=== PATIENT | female | born 1985 | race Two or more races ===

== ENCOUNTER 2020-03-19 06:38 | Emergency (ER) | payer MEDICAID ==
[~2020-03-19] VITALS: Ht 160 cm; Wt 55.0 kg
[2020-03-19] VITALS (15 sets, daily range): BP systolic 119–136; BP diastolic 77–92
[2020-03-19] MEDS ORDERED: CEFAZOLIN 1000MG PREMIX 50 ML IV ONE ×2 (08:45→11:05)
[2020-03-19 09:13] LABS: BASOPHILS % 1.2 % (0.0-2.0); EOSINOPHILS % 2.9 % (0.0-5.0); HEMATOCRIT. 35.4 % (36.0-48.0); HEMOGLOBIN. 11.7 g/dL (12.0-16.0); LYMPHOCYTES % 23.7 % (20.0-50.0); MEAN CORPUSCULAR HEMOGLOBIN 29.6 pg (28.0-32.0); MEAN CORPUSCULAR VOLUME 89.2 fL (81.0-99.0); MEAN PLATELET VOLUME 7.9 fl (7.4-10.4); MONOCYTES % 6.3 % (2.0-8.0); NEUTROPHILS % 65.9 % (40.0-76.0); PLATELET 175 x1000/uL (130-400); RED BLOOD CELL COUNT 3.97 mill/uL (4.2-5.4); RED CELL DISTRIBUTION WIDTH 15.9 % (11.6-14.6)
[2020-03-19 09:21] LABS: CHLORIDE 100 mEq/L (98-107)
[2020-03-19 09:23] LABS: PROTHROMBIN TIME 10.3 sec (9.6-11.0)
[2020-03-19] MEDS ORDERED: LIDOCAINE HCL 1% 20ML VIAL (Pyxis) INJ ONE ×3 (11:25→15:19)
[2020-03-19] MEDS ORDERED: HEPARIN 1000 UNITS/ML 10ML ONE (11:25)
[2020-03-19] MEDS ORDERED: SODIUM BICARBONATE 4% (2.4MEQ) 5ML VIAL IV ONE ×2 (11:25→15:19)
[2020-03-19] MEDS ORDERED: FENTANYL CITRATE/PF 50MCG/ML 2ML VIAL ONE (11:33)
[2020-03-19] MEDS ORDERED: FENTANYL CITRATE/PF 50MCG/ML 2ML VIAL IV ONE (12:15)
[2020-03-19] MEDS ORDERED: DESMOPRESSIN ACETATE IV NR (14:00)
[2020-03-19] MEDS ORDERED: SODIUM CHLORIDE 0.9% IV NR (14:00)
== END 2020-03-19 16:16 | disposition home or self-care (01) ==
LOC: ER 06:38
DX: T82.9XXA Unspecified complication of cardiac and vascular prosthetic device, implant and graft, initial encounter (principal); Z20.828 Contact with and (suspected) exposure to other viral communicable diseases
CPT/HCPCS: 36415; 36581; 77001; 80053; 85025; 85610; 87426; 96365; 96367; 99285; C1750; C1769; J0690; J1644; J2597; J3010; J3490; J7040; Z7610; 36558; 99152; 99153; G0500

== ENCOUNTER 2020-11-21 22:44 | Emergency (ER) | payer MEDICAID | END 2020-11-22 00:53 | disposition left against medical advice (07) | LOC: ER 22:44 | DX: Z53.21 Procedure and treatment not carried out due to patient leaving prior to being seen by health care provider (principal) ==

== ENCOUNTER 2021-08-12 20:22 | Inpatient (IN) | payer MEDICAID ==
[~2021-08-12] VITALS: Ht 157.5 cm; Wt 64.4 kg
[~2021-08-12 20:22] MED LIST: AMLO10TA80 MT; CALC667C MT; NEPVIT MT
[2021-08-12 21:49] LABS: BASOPHILS % 0.3 % (0.0-2.0); EOSINOPHILS % 2.9 % (0.0-5.0); LYMPHOCYTES % 12.6 % (20.0-50.0); MEAN CORPUSCULAR VOLUME 90.3 fL (81.0-99.0); MONOCYTES % 10.1 % (2.0-8.0); NEUTROPHILS % 74.1 % (40.0-76.0); PLATELET 142 x1000/uL (130-400); RED BLOOD CELL COUNT 2.26 mill/uL (4.2-5.4)
[2021-08-12 21:54] LABS: HEMATOCRIT. 20.4 % (36.0-48.0)
[2021-08-12 21:55] LABS: CHLORIDE 102 mEq/L (98-107)
[2021-08-12 21:59] LABS: INR 0.9; PROTHROMBIN TIME 10.1 sec (9.6-11.0)
[2021-08-12 22:06] LABS: B-HCG QUANTITATIVE 432 mIU/mL (<3)
[2021-08-13] MEDS: LACTATED RINGERS 1,000 ML IV SCH ×3 (01:00→02:47)
[2021-08-13] MEDS ORDERED: MORPHINE SULFATE 2 MG/ML CPJ (NOT FOR IM USE) IV PRN (02:15)
[2021-08-13] MEDS ORDERED: LACTATED RINGERS 1,000 ML IV SCH ×2 (03:30)
[2021-08-13 06:23] VITALS: BP 132/76
[2021-08-13 08:00] VITALS: BP 128/94
[2021-08-13] MEDS ORDERED: PROPOFOL 200MG/20ML VIAL IV ONE (11:07)
[2021-08-13] MEDS ORDERED: FENTANYL CITRATE/PF 50MCG/ML 2ML VIAL ONE (11:08)
[2021-08-13] MEDS ORDERED: LIDOCAINE HCL 1% 20ML VIAL (Pyxis) INJ ONE (11:08)
[2021-08-13] MEDS ORDERED: MIDAZOLAM HCL 2 MG/2 ML VIAL ONE (11:08)
[2021-08-13] MEDS ORDERED: ONDANSETRON HCL 4MG/2ML INJ ONE (11:27)
[2021-08-13] MEDS ORDERED: METHYLERGONOVINE MALEATE 0.2 MG/ML ONE (11:40)
[2021-08-13] MEDS ORDERED: NALOXONE HCL 0.4MG/ML VIAL IV PRN (12:30)
[2021-08-13] MEDS ORDERED: ONDANSETRON HCL 4MG/2ML INJ IV NR (12:40)
[2021-08-13 16:00] VITALS: BP 134/90
[2021-08-13 16:40] LABS: HEPATITIS B SURFACE ANTIGEN NEGATIVE
[2021-08-13] MEDS ORDERED: EPOETIN ALFA-EPBX 10,000 UNIT/ML VIAL SUBCUT SCH (21:00)
[2021-08-14] VITALS (11 sets, daily range): BP systolic 115–148; BP diastolic 76–101
[2021-08-14] MEDS ORDERED: ACETAMINOPHEN 325MG TABLET PO NR (07:15)
[2021-08-14 09:17] LABS: BASOPHILS % 0.6 % (0.0-2.0); EOSINOPHILS % 4.5 % (0.0-5.0); LYMPHOCYTES % 13.7 % (20.0-50.0); MEAN CORPUSCULAR HEMOGLOBIN 31.2 pg (28.0-32.0); MEAN CORPUSCULAR VOLUME 90.5 fL (81.0-99.0); MEAN PLATELET VOLUME 8.5 fl (7.4-10.4); MONOCYTES % 9.5 % (2.0-8.0); NEUTROPHILS % 71.7 % (40.0-76.0); PLATELET 140 x1000/uL (130-400); RED BLOOD CELL COUNT 1.66 mill/uL (4.2-5.4)
[2021-08-14 09:40] LABS: HEMATOCRIT. 15.1 % (36.0-48.0); HEMOGLOBIN. 5.2 g/dL (12.0-16.0)
[2021-08-14 09:42] LABS: PHOSPHORUS 4.1 mg/dL (2.5-4.9)
== END 2021-08-14 21:45 | disposition home or self-care (01) | DRG 543 ==
LOC: ER 20:22 → MICUSO 08-13 00:41 → 6EST 08-13 04:42
PROVIDERS: ADMIT Psychiatry & Neurology Neurology; ATTEND Psychiatry & Neurology Neurology
PROC: 10D17ZZ Extraction of Products of Conception, Retained, Via Natural or Artificial Opening (ICD-10-PCS; principal; 2021-08-13)
PROC: 5A1D70Z Performance of Urinary Filtration, Intermittent, Less than 6 Hours Per Day (ICD-10-PCS; 2021-08-13)
PROC: 30233N1 Transfusion of Nonautologous Red Blood Cells into Peripheral Vein, Percutaneous Approach (ICD-10-PCS; 2021-08-14)
DX: O03.1 Delayed or excessive hemorrhage following incomplete spontaneous abortion (principal); I12.0 Hypertensive chronic kidney disease with stage 5 chronic kidney disease or end stage renal disease; D62 Acute posthemorrhagic anemia; N18.6 End stage renal disease; N25.81 Secondary hyperparathyroidism of renal origin; Z60.2 Problems related to living alone; D25.9 Leiomyoma of uterus, unspecified; Z20.822 Contact with and (suspected) exposure to COVID-19; Z99.2 Dependence on renal dialysis; Z82.49 Family history of ischemic heart disease and other diseases of the circulatory system; Z79.899 Other long term (current) drug therapy; Z98.891 History of uterine scar from previous surgery
CPT/HCPCS: 36415; 71045; 76830; 76856; 80048; 80053; 83735; 84100; 84702; 85025; 86705; 86709; 86803; 86850; 86900; 86920; 87340; 87426; 88305; 99285; J0885; J2210; J2250; J2270; J2405; J2704; J3010; J3490; J7120; P9016